=== PATIENT | male | born 1965 | race American Indian/Alaskan Native ===

== ENCOUNTER 2020-11-12 13:08 | Emergency (ER) | payer OTHER ==
[~2020-11-12] VITALS: Ht 188 cm; Wt 97.5 kg
== END 2020-11-12 17:42 | disposition home or self-care (01) ==
LOC: ER 13:08
DX: S43.005A Unspecified dislocation of left shoulder joint, initial encounter (principal); Z88.8 Allergy status to other drugs, medicaments and biological substances; X50.1XXA Overexertion from prolonged static or awkward postures, initial encounter
CPT/HCPCS: 23655; 73020; 96374-59; 96375-59; 99283-25; J1885; J2060; J2405; J2704; J3010